=== PATIENT | female | born 2000 | race Caucasian/White ===

== ENCOUNTER 2024-05-19 14:34 | Emergency (ER) | payer MEDICAID ==
[~2024-05-19] VITALS: Ht 170.2 cm; Wt 79.0 kg
[2024-05-19 14:59] VITALS: O2SAT 99
[2024-05-19 16:54] VITALS: BP 107/54; PULSE 94; RESP 19; TEMP 37.16964; O2SAT 100
== END 2024-05-19 16:54 | disposition home or self-care (01) ==
LOC: ER 14:34
DX: J06.9 Acute upper respiratory infection, unspecified (principal); Z20.822 Contact with and (suspected) exposure to COVID-19
CPT/HCPCS: 87426; 87804; 99283